=== PATIENT | female | born 1960 | race Caucasian/White ===

== ENCOUNTER 2017-07-27 22:31 | Emergency (ER) | payer OTHER ==
[~2017-07-27] VITALS: Ht 162.6 cm; Wt 59.0 kg
[~2017-07-27 22:31] MED LIST: BUPR100T4 PO; ESCI10TA PO
--- NOTE | 2017-07-27 22:31 | NUR ---
URINE COLLECTED AND SENT TO LAB
--- NOTE | 2017-07-27 22:39 | NUR ---
PT BIB RA WITH [employer] AT BEDSIDE S/P TAKING 1 TYLENOL 3, 1 LEXAPRO, DRINKING 1 SHOT VODKA AND 1/4 BOTTLE OF WINE TONIGHT. 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 REPORTS ALTERCATIONS WITH HER GROWN CHILDREN FOR THE PAST 2 DAYS. CONTRACTS FOR SAFETY. DENIES PHYSICAL COMPLAINTS EXCEPT MODERATE 5/10 HEADACHE "WHICH IS WHY I TOOK THE TYLENOL WITH [facility]". RESP EVEN UNLABORED. NO S/SX OF OD. DOES NOT APPEAR INTOXICATED. IN ER BED 08.
--- NOTE | 2017-07-27 22:47 | NUR ---
AMBULATORY WITH STEADY GAIT.
[2017-07-27 22:58] LABS: BASOPHILS % (AUTO) 0.5 % (0.0-2.0); EOSINOPHILS % (AUTO) 0.1 % (0.0-6.0); HEMATOCRIT 40 % (33-45); HEMOGLOBIN 13.8 g/dL (11.5-14.8); LYMPHOCYTES # (AUTO) 1.7 /CMM (0.8-4.8); LYMPHOCYTES % (AUTO) 19.1 % (20.0-44.0); MEAN CORPUSCULAR HEMOGLOBIN 32 PG (26.0-33.0); MEAN CORPUSCULAR HGB CONC 35 g/dl (31.0-36.0); MEAN CORPUSCULAR VOLUME 94 fL (82-100); MONOCYTES # (AUTO) 0.6 /CMM (0.1-1.30); MONOCYTES % (AUTO) 6.9 % (2.0-12.0); NEUTROPHILS # (AUTO) 6.6 /CMM (1.8-8.9); NEUTROPHILS % (AUTO) 73.4 % (43.0-81.0); PLATELET COUNT (AUTO) 310 /CMM (150-450); RDW COEFFICIENT OF VARIATION 14.2 (11.5-15.0); RED BLOOD CELL COUNT(AUTO) 4.27 MIL/uL (4.0-5.2)
[2017-07-27 23:02] LABS: APPEARANCE,URINE CLEAR (CLEAR); BILIRUBIN,URINE NEGATIVE (NEGATIVE); BLOOD, URINE 1+ Ery/uL (NEGATIVE); COLOR,URINE YELLOW (YELLOW); KETONES,URINE NEGATIVE (NEGATIVE); LEUKOCYTE ESTERASE ,URINE NEGATIVE (NEGATIVE); NITRITE, URINE NEGATIVE (NEGATIVE); PH,URINE 5.5 (5.0-8.0); PROTEIN,URINE NEGATIVE (NEGATIVE); UGLUCOSE NEGATIVE (NEGATIVE); UROBILINOGEN,URINE 0.2 EU/dL (0.2)
[2017-07-27 23:06] LABS: CALCIUM, SERUM 9.5 mg/dL (8.5-10.1); CREATININE 0.9 mg/dL (0.6-1.3); POTASSIUM 3.9 mmol/L (3.5-5.1)
[2017-07-27 23:10] LABS: BACTERIA,URINE Few /HPF (None Seen); SQUAMOUS EPITHELIAL CELL,UR Many /HPF (None Seen)
[2017-07-27 23:12] LABS: BILIRUBIN,DIRECT 0.1 mg/dL (0.0-0.2); BILIRUBIN,TOTAL 0.4 mg/dL (0.2-1.0); SALICYLATE 1.5 mg/dL (2.8-20.0); TOTAL PROTEIN, SERUM 7.3 g/dL (6.4-8.2)
--- NOTE | 2017-07-28 00:38 | NUR ---
RESTING QUIETLY, NAD NOTED. PT REPORTS SHE FEELS READY TO GO HOME AT THIS TIME. DENIES SI/HI, APPEARS CALM.
[2017-07-28 03:28] VITALS: BP 142/86
--- NOTE | 2017-07-28 03:32 | NUR ---
Patient discharged to home in stable condition. Written and verbal after care instructions given. Patient verbalizes understanding of instruction. DENIES SI/HI.
== END 2017-07-28 03:33 | disposition home or self-care (01) ==
LOC: EDSEX 22:33 → ER 22:33
DX: F19.10 Other psychoactive substance abuse, uncomplicated (principal); R45.851 Suicidal ideations; I10 Essential (primary) hypertension; F32.9 Major depressive disorder, single episode, unspecified; Z88.1 Allergy status to other antibiotic agents; Z88.2 Allergy status to sulfonamides; Z88.8 Allergy status to other drugs, medicaments and biological substances
CPT/HCPCS: 36415; 80048; 80076; 80305; 80329; 81001; 85025; 99284; A4606; G0480 ×2; Z7610; 81000-TC

== ENCOUNTER 2018-12-18 19:29 | Emergency (ER) | payer BC, OTHER ==
[~2018-12-18] VITALS: Ht 154.9 cm; Wt 55.3 kg
--- NOTE | 2018-12-18 19:43 | NUR ---
BIBRA 102 FROM [facility] FOR SVT HR 225, CONVERTED AFTER RECEIVING 5; 12 ADENOSINE. HR ON [address]. HAS A LOW-GRADE FEVER AT 100.1. BP, RR, O2 SAT STABLE. SKIN WARM, DRY, INTACT. APPEARS VERY ANXIOUS. HOOKED TO MONITOR AND READY FOR EVAL.
[2018-12-18 19:51] LABS: BASOPHILS % (AUTO) 0.5 % (0.0-2.0); EOSINOPHILS % (AUTO) 1.3 % (0.0-6.0); HEMATOCRIT 37 % (33-45); HEMOGLOBIN 12.7 g/dL (11.5-14.8); LYMPHOCYTES # (AUTO) 0.6 /CMM (0.8-4.8); LYMPHOCYTES % (AUTO) 14.7 % (20.0-44.0); MEAN CORPUSCULAR HGB CONC 34 g/dl (31.0-36.0); MEAN CORPUSCULAR VOLUME 99 fL (82-100); MONOCYTES # (AUTO) 0.5 /CMM (0.1-1.30); MONOCYTES % (AUTO) 10.8 % (2.0-12.0); NEUTROPHILS # (AUTO) 3.2 /CMM (1.8-8.9); NEUTROPHILS % (AUTO) 72.7 % (43.0-81.0); PLATELET COUNT (AUTO) 239 /CMM (150-450); RED BLOOD CELL COUNT(AUTO) 3.78 MIL/uL (4.0-5.2); WHITE BLOOD COUNT (AUTO) 4.4 K/uL (4.3-11.0)
[2018-12-18 20:01] LABS: CALCIUM, SERUM 8.7 mg/dL (8.5-10.1); CARBON DIOXIDE 24 mmol/L (21-32); CHLORIDE 105 mmol/L (98-107); CREATININE 0.8 mg/dL (0.6-1.3); GLUCOSE 106 mg/dL (74-106); POTASSIUM 3.5 mmol/L (3.5-5.1); SODIUM SERUM 140 mmol/L (136-145); UREA NITROGEN, BLOOD 10 mg/dL (7-18)
--- NOTE | 2018-12-18 20:18 | NUR ---
ADJUNCT PHLEBOTOMY INSTRUCTOR AT BEDSIDE FOR BLOOD CULTURES
[2018-12-18 20:32] LABS: APPEARANCE,URINE CLEAR (CLEAR); BILIRUBIN,URINE NEGATIVE (NEGATIVE); BLOOD, URINE NEGATIVE Ery/uL (NEGATIVE); COLOR,URINE YELLOW (YELLOW); KETONES,URINE NEGATIVE (NEGATIVE); LEUKOCYTE ESTERASE ,URINE NEGATIVE (NEGATIVE); NITRITE, URINE NEGATIVE (NEGATIVE); PROTEIN,URINE NEGATIVE (NEGATIVE); UGLUCOSE NEGATIVE (NEGATIVE); UROBILINOGEN,URINE 0.2 EU/dL (0.2)
--- NOTE | 2018-12-18 21:37 | NUR ---
PT RESTING COMFORTABLY IN BED. VSS. NO COMPLAINTS AT THIS TIME.
--- NOTE | 2018-12-18 22:12 | NUR ---
IV removed. Catheter intact and site benign. Pressure and 4x4 applied to site. No bleeding noted. Patient discharged to home in stable condition. Written and verbal after care instructions given. Patient verbalizes understanding of instruction.
[2018-12-18 22:14] VITALS: BP 106/74
== END 2018-12-18 22:15 | disposition home or self-care (01) ==
LOC: ER 19:31
DX: I47.1 Supraventricular tachycardia (principal); B34.9 Viral infection, unspecified; I10 Essential (primary) hypertension; J45.901 Unspecified asthma with (acute) exacerbation; E78.5 Hyperlipidemia, unspecified; M54.9 Dorsalgia, unspecified; F32.9 Major depressive disorder, single episode, unspecified; Z88.2 Allergy status to sulfonamides; Z88.3 Allergy status to other anti-infective agents; Z88.6 Allergy status to analgesic agent; Z88.8 Allergy status to other drugs, medicaments and biological substances
CPT/HCPCS: 36415; 71045-TC; 80048-TC; 81000-TC; 84484-TC; 85025-TC; 87040-TC; 87086-TC

== ENCOUNTER 2018-12-20 13:48 | Emergency (ER) | payer BC ==
[~2018-12-20] VITALS: Ht 152.4 cm; Wt 60.8 kg
--- NOTE | 2018-12-20 14:22 | NUR ---
PT TO ER BED 11 C/O HEADACHE AND FEVER X 5 DAYS NOW. PT STATES MILD RELIEF FROM IBUPROFEN. DENIES MIGRAINE HEADACHES. DENIES CHEST PAIN. GOWNED AND PLACED ON MONITOR. AWAITING MD FOSTER.
--- NOTE | 2018-12-20 14:43 | NUR ---
DR ROBBINS AT BEDSIDE FOR EVAL.
--- NOTE | 2018-12-20 15:15 | NUR ---
IV LINE STARTED BLOOD DRAWN ANS SENT TO LAB.
[2018-12-20] MEDS ORDERED: KETOROLAC TROMETHAMINE 15 MG/ML VIAL ONE (15:19)
[2018-12-20] MEDS ORDERED: METOCLOPRAMIDE HCL 10 MG/2 ML VIAL ONE (15:19)
[2018-12-20] MEDS ORDERED: LORAZEPAM 1 MG TABLET ONE (15:20)
[2018-12-20] MEDS ORDERED: METOCLOPRAMIDE HCL 10 MG/2 ML VIAL IV ONE (15:30)
[2018-12-20] MEDS ORDERED: IV NS 0.9% 1,000 ML BAG IV ONE (15:30)
[2018-12-20] MEDS ORDERED: KETOROLAC TROMETHAMINE INJ 30 MG/ML VIAL IV ONE (15:30)
[2018-12-20] MEDS ORDERED: LORAZEPAM 1 MG TABLET PO ONE (15:30)
--- NOTE | 2018-12-20 16:56 | NUR ---
Patient discharged to home in stable condition. Written and verbal after care instructions given. Patient verbalizes understanding of instruction.IV removed. Catheter intact and site benign. Pressure and 4x4 applied to site. No bleeding noted.
[2018-12-20 16:57] VITALS: BP 118/77
== END 2018-12-20 16:59 | disposition home or self-care (01) ==
LOC: ER 13:50
DX: R51 Headache (principal); I10 Essential (primary) hypertension; J45.909 Unspecified asthma, uncomplicated; F32.9 Major depressive disorder, single episode, unspecified; Z88.2 Allergy status to sulfonamides; Z88.8 Allergy status to other drugs, medicaments and biological substances; Z79.899 Other long term (current) drug therapy
CPT/HCPCS: 96374; 96375; 99283; J1885; J2765; J7030

== ENCOUNTER 2024-12-27 15:08 | Emergency (ER) | payer BC ==
[~2024-12-27] VITALS: Ht 154.9 cm; Wt 56.7 kg
[2024-12-27] MEDS ORDERED: ONDANSETRON HCL/PF 4 MG/2 ML VIAL ONE (16:49)
[2024-12-27] MEDS ORDERED: MORPHINE SULFATE INJ 4 MG/ML DISP.SYRIN ONE (16:50)
[2024-12-27] MEDS: MORPHINE SULFATE INJ 2 MG/ML DISP.SYRIN IV ONE (16:58)
[2024-12-27] MEDS: IV NS 0.9% 1,000 ML BAG IV ONE (16:58)
[2024-12-27] MEDS: ONDANSETRON HCL/PF 4 MG/2 ML VIAL IV ONE (16:59)
[2024-12-27 17:04] LABS: CALCIUM, SERUM 9.4 mg/dL (8.5-10.1); CREATININE 0.6 mg/dL (0.6-1.3); POTASSIUM 4.1 mmol/L (3.5-5.1)
[2024-12-27 17:12] LABS: BASOPHILS % (AUTO) 0.4 % (0.0-2.0); EOSINOPHILS # (AUTO) 0.1 K/uL (0.0-0.7); EOSINOPHILS % (AUTO) 2.2 % (0.0-6.0); HEMATOCRIT 40 % (33-45); HEMOGLOBIN 13.5 g/dL (11.5-14.8); LYMPHOCYTES # (AUTO) 1.7 K/uL (0.8-4.8); MEAN CORPUSCULAR HEMOGLOBIN 30 PG (26.0-33.0); MEAN CORPUSCULAR HGB CONC 34 g/dl (31.0-36.0); MEAN CORPUSCULAR VOLUME 89 fL (82-100); MONOCYTES # (AUTO) 0.7 K/uL (0.1-1.30); MONOCYTES % (AUTO) 11.5 % (2.0-12.0); NEUTROPHILS # (AUTO) 3.4 K/uL (1.8-8.9); NEUTROPHILS % (AUTO) 56.9 % (43.0-81.0); PLATELET COUNT (AUTO) 344 K/uL (150-450); RED CELL DISTRIBUTION WIDTH 13.7 % (11.5-15.0)
[2024-12-27 17:20] LABS: THYROID STIMULATING HORMONE 2.44 uIU/mL (0.358-3.74)
[2024-12-27 17:24] LABS: MAGNESIUM 1.9 mg/dL (1.8-2.4); PHOSPHORUS 4.4 mg/dL (2.5-4.9)
[2024-12-27] MEDS ORDERED: LIDOCAINE 5% (PATCH) 1 EA PATCH TP ONE (17:37)
[2024-12-27] MEDS: LIDOCAINE 5% (PATCH) 1 EA PATCH TP STA (17:41)
[2024-12-27 18:26] LABS: APPEARANCE,URINE CLEAR (CLEAR); BILIRUBIN,URINE NEGATIVE (NEGATIVE); BLOOD, URINE NEGATIVE Ery/uL (NEGATIVE); COLOR,URINE YELLOW (YELLOW); KETONES,URINE NEGATIVE (NEGATIVE); LEUKOCYTE ESTERASE ,URINE NEGATIVE (NEGATIVE); NITRITE, URINE NEGATIVE (NEGATIVE); PROTEIN,URINE NEGATIVE (NEGATIVE); UGLUCOSE NEGATIVE (NEGATIVE); UROBILINOGEN,URINE 0.2 EU/dL (0.2)
[2024-12-27 18:37] LABS: AMPHETAMINE, URINE NEGATIVE (NEGATIVE); BARBITURATE, URINE NEGATIVE (NEGATIVE); BENZODIAZEPINE, URINE NEGATIVE (NEGATIVE); CANNABINOID, URINE NEGATIVE (NEGATIVE); COCCAINE, URINE NEGATIVE (NEGATIVE); PHENCYCLIDINE SCREEN,URINE NEGATIVE (NEGATIVE)
[2024-12-27 18:39] LABS: OPIATE, URINE POSITIVE (NEGATIVE)
[2024-12-27 19:50] VITALS: BP 140/80; TEMP 98.1; O2SAT 99
== END 2024-12-27 19:50 | disposition home or self-care (01) ==
LOC: ER 15:11
DX: M54.2 Cervicalgia (principal); M47.812 Spondylosis without myelopathy or radiculopathy, cervical region; H81.09 Meniere's disease, unspecified ear; G89.29 Other chronic pain; F32.A Depression, unspecified; I10 Essential (primary) hypertension; Z79.899 Other long term (current) drug therapy; Z88.2 Allergy status to sulfonamides; Z88.8 Allergy status to other drugs, medicaments and biological substances
CPT/HCPCS: 99285; 96374; 96361; 96375; 93005; 85025; 80048; 83735; 84100; 81003; 36415; 84443; 82962; 80320; 80307; J2270; J2405; J7030; G0480